=== PATIENT | female | born 1985 | race American Indian/Alaskan Native ===

== ENCOUNTER 2017-09-25 12:34 | Emergency (ER) | payer BC, OTHER ==
[2017-09-25] MEDS ORDERED: REGLAN IV ONE (13:32)
[2017-09-25] MEDS ORDERED: TYLENOL PO ONE (13:32)
[2017-09-25] MEDS ORDERED: APRESOLINE IV ONE (13:32)
[2017-09-25] MEDS ORDERED: TORADOL IV ONE (13:32)
[2017-09-25] MEDS ORDERED: BENADRYL IV ONE (13:33)
[2017-09-25 14:10] LABS: Bilirubin,Urine NEG (Negative); Blood,Urine NEG (Negative); Color,Urine Yellow (Yellow); Protein,Urine <15 mg/dL mg/dL (Negative); RBC,Urine < 1.0 /HPF (0.0-6.0); Urobilinogen,Urine < 2.0 mg/dL (<2.0); WBC,Urine < 1.0 /HPF (0.0-6.0)
[2017-09-25] MEDS ORDERED: ATIVAN IV ONE (14:11)
[2017-09-25] MEDS ORDERED: NORMODYNE IV ONE (14:11)
[2017-09-25 14:15] LABS: HCG Qualitative,Urine Negative (Negative)
--- NOTE | 2017-09-25 14:20 | Emergency Department Report ---
Chief Complaint: Headache Stated Complaint: MIGRAINE Time Seen by Provider: 09/25/17 13:32 - HPI History of Present Illness: The patient is a 32-year-old female who presents for evaluation of headache. The patient reports left-sided headache for the past 2 hours, constant since onset, throbbing in quality, moderate to severe. She also reports nausea and one episode of nonbilious, nonbloody emesis. The patient denies fever, head injury, neck pain, neck stiffness, hearing changes, smell or taste changes, paresthesias, facial drooping, slurred speech, seizure-like activity, urine or bowel incontinence or retention, or other focal neurological deficit. - Exam Vital Signs: Vital Signs 09/25/17 09/25/17 09/25/17 12:44 13:19 13:27 Temperature 98.6 F Pulse Rate 63 71 Respiratory 18 18 18 Rate Blood Pressure 162/106 140/96 O2 Sat by Pulse 100 98 99 Oximetry 09/25/17 09/25/17 13:51 14:07 Temperature Pulse Rate 86 Respiratory 18 Rate Blood Pressure 140/96 149/109 O2 Sat by Pulse Oximetry MSE screening note: Focused history and physical exam performed. Due to findings the following was ordered: ED Disposition for MSE Condition: Stable Referrals: PRIMARY CARE, [Primary Care Provider] - 3-5 Days
--- NOTE | 2017-09-25 14:55 | Cat Scan Report ---
CT HEAD WITHOUT CONTRAST: HISTORY: Headache. TECHNIQUE: Sequential 2.5mm CT images. COMPARISON: none. FINDINGS: Cerebral Parenchyma: Within normal limits. Cerebellum: Within normal limits. Brainstem: Within normal limits. Ventricles: Normal. Sella: Normal. Extra-axial spaces: Normal. Basal Cisterns: Normal. Intracranial Hemorrhage: None. Midline Shift: None. Calvarium: Normal. Sinuses: Normal. Mastoid Air Cells: Normal. Visualized Orbits: Normal. IMPRESSION: Cranial CT scan within normal limits.
--- NOTE | 2017-09-25 17:46 | Emergency Department Report ---
ED Headache HPI - General Chief Complaint: Headache Stated Complaint: MIGRAINE Time Seen by Provider: 09/25/17 13:32 Source: patient, family, police, RN/MD, EMS, per diem interpreter, RN notes reviewed, EMS notes reviewed, correction records, old records, other - History of Present Illness Initial Comments: The patient is a 32-year-old female who presents for evaluation of headache. The patient reports left-sided headache for the past 2 hours, constant since onset, throbbing in quality, moderate to severe. She also reports nausea and one episode of nonbilious, nonbloody emesis. The patient denies fever, head injury, neck pain, neck stiffness, hearing changes, smell or taste changes, paresthesias, facial drooping, slurred speech, seizure-like activity, urine or bowel incontinence or retention, or other focal neurological deficit. Patient has has medical history of migraines. She currently is taking no medications has no known drug allergies. Timing/Duration: 4-6 hours Quality: severe Head Injury Location: frontal Recent Head Trauma: no recent headache/trauma Modifying Factors: improves with: exposure to light, other (speckled vision N feel) Associated Symptoms: nausea/vomiting, vision changes. denies: fatigue, facial pain, nasal congestion, seizures, stiff neck Allergies/Adverse Reactions: Allergies No Known Allergies Allergy (Unverified 07/09/13 03:33) Home Medications: Ambulatory Orders HYDROcodone/APAP 5-325 [Diana 5-325 mg TAB] 1 each PO Q6HR PRN #12 tablet Promethazine [Phenergan] 25 mg PO Q6H PRN #12 tablet 07/09/13 Ibuprofen 800 mg PO Q8H PRN #30 tablet 09/25/17 ED Review of Systems ROS: Stated complaint: MIGRAINE Other details as noted in HPI Constitutional: denies: chills, fever Eyes: vision change (speckled seen in her vision feel) ENT: denies: ear pain, throat pain Respiratory: denies: cough, shortness of breath, wheezing Cardiovascular: denies: chest pain, palpitations Endocrine: no symptoms reported Gastrointestinal: vomiting (times one). denies: abdominal pain, nausea, diarrhea Genitourinary: denies: urgency, dysuria, discharge Musculoskeletal: denies: back pain, joint swelling, arthralgia Skin: denies: rash, lesions Neurological: headache. denies: weakness, paresthesias Psychiatric: denies: anxiety, depression Hematological/Lymphatic: denies: easy bleeding, easy bruising ED Past Medical Hx - Past Medical History Hx Headaches / Migraines: Yes - Surgical History Past Surgical History?: No - Social History Smoking Status: Former Smoker Substance Use Type: Alcohol - Medications Home Medications: Home Medications Medication Instructions Recorded Confirmed Last Taken Type HYDROcodone/APAP 5-325 [Diana 1 each PO Q6HR PRN #12 tablet 07/09/13 Unknown Rx 5-325 mg TAB] Promethazine [Phenergan] 25 mg PO Q6H PRN #12 tablet 07/09/13 Unknown Rx Ibuprofen 800 mg PO Q8H PRN #30 tablet 09/25/17 Unknown Rx ED Physical Exam - General Limitations: No Limitations General appearance: alert, in no apparent distress - Head Head exam: Present: atraumatic, normocephalic - Eye Eye exam: Present: normal appearance - ENT ENT exam: Present: mucous membranes moist - Neck Neck exam: Present: normal inspection - Respiratory Respiratory exam: Present: normal lung sounds bilaterally. Absent: respiratory distress - Cardiovascular Cardiovascular Exam: Present: regular rate, normal rhythm. Absent: systolic murmur, diastolic murmur, rubs, gallop - GI/Abdominal GI/Abdominal exam: Present: soft, normal bowel sounds - Extremities Exam Extremities exam: Present: normal inspection - Back Exam Back exam: Present: normal inspection - Neurological Exam Neurological exam: Present: alert, oriented X3 - Expanded Neurological Exam Expanded Cranial nerves: EOM's Intact: Normal, Gag Reflex: Normal, Tongue Deviation: Normal, Nystagmus: Normal Cerebellar function: Finger to Nose: Normal, Heel to Hernández: Normal, Romberg: Normal Upper motor neuron: Asher Neglect: Normal, Pronator Drift: Normal Motor strength exam: RUE: 4, LUE: 4, RLE: 4, LLE: 4 Best Eye Response (Vinicio): (4) open spontaneously Best Motor Response (Vinicio): (6) obeys commands Best Verbal Response (Vinicio): (5) oriented Vinicio Total: 15 - Psychiatric Psychiatric exam: Present: normal affect, normal mood - Skin Skin exam: Present: warm, dry, intact, normal color. Absent: rash ED Course Vital Signs 09/25/17 09/25/17 09/25/17 12:44 13:19 13:27 Temperature 98.6 F Pulse Rate 63 71 Respiratory 18 18 18 Rate Blood Pressure 162/106 140/96 O2 Sat by Pulse 100 98 99 Oximetry 09/25/17 09/25/17 09/25/17 13:51 14:07 14:27 Temperature Pulse Rate 86 Respiratory 18 Rate Blood Pressure 140/96 149/109 150/84 O2 Sat by Pulse Oximetry 09/25/17 09/25/17 15:18 15:20 Temperature Pulse Rate 86 Respiratory Rate Blood Pressure 150/84 133/77 O2 Sat by Pulse Oximetry ED Medical Decision Making - Radiology Data CT within normal limits - Medical Decision Making Patient has been evaluated by this provider as well as Dr. Patel. Patient reports that she feels much better after having pain medication here. She reports that her vision has complete improved. Critical care attestation.: If time is entered above; I have spent that time in minutes in the direct care of this critically ill patient, excluding procedure time. ED Disposition Clinical Impression: Migraine aura, persistent, intractable Disposition: -01 TO HOME OR SELFCARE Is pt being admited?: No Does the pt Need Aspirin: No Condition: Stable Instructions: Migraine Headache (ED) Additional Instructions: You can take ibuprofen as needed for headaches. Follow-up with the primary care provider. Prescriptions: Ibuprofen 800 mg PO Q8H PRN #30 tablet PRN Reason: Pain Referrals: PRIMARY CARE, [Primary Care Provider] - 3-5 Days SALOME IRBY MD [Staff Physician] - 3-5 Days JACK RICHARD JR, MD [Staff Physician] - 3-5 Days Forms: Work/School Release Form(ED)
[2017-09-25 18:18] VITALS: BP 140/86
== END 2017-09-25 18:17 | disposition home or self-care (01) ==
LOC: ED 12:34
DX: G43.519 Persistent migraine aura without cerebral infarction, intractable, without status migrainosus (principal); Z87.891 Personal history of nicotine dependence
CPT/HCPCS: 70450; 81001; 81025; 96374; 96375; 99284; J0360; J1200; J2060; J2765

== ENCOUNTER 2018-07-15 15:28 | Emergency (ER) | payer BC, MEDICAID ==
--- NOTE | 2018-07-15 16:56 | Emergency Department Report ---
<DAYA PITT - Last Filed: 07/15/18 20:49> ED Abdominal Pain HPI - General Chief Complaint: Abdominal Pain Stated Complaint: STOMACH/BACK AND BUTT PAIN - Related Data Previous Rx's Medication Instructions Recorded Last Taken Type HYDROcodone/APAP 5-325 [Hayward 1 each PO Q6HR PRN #12 tablet 07/09/13 Unknown Rx 5-325 mg TAB] Promethazine [Phenergan] 25 mg PO Q6H PRN #12 tablet 07/09/13 Unknown Rx Ibuprofen 800 mg PO Q8H PRN #30 tablet 09/25/17 Unknown Rx Oxycodone HCl/Acetaminophen 1 each PO Q6HR PRN #12 tablet 07/15/18 Unknown Rx [Percocet 7.5/325 mg] metroNIDAZOLE [Metronidazole] 500 mg PO Q8H #21 tablet 07/15/18 Unknown Rx Allergies Allergy/AdvReac Type Severity Reaction Status Date / Time No Known Allergies Allergy Unverified 07/09/13 03:33 ED Past Medical Hx - Medications Home Medications: Home Medications Medication Instructions Recorded Confirmed Last Taken Type HYDROcodone/APAP 5-325 [[place]ward 1 each PO Q6HR PRN #12 tablet 07/09/13 Unknown Rx 5-325 mg TAB] Promethazine [Phenergan] 25 mg PO Q6H PRN #12 tablet 07/09/13 Unknown Rx Ibuprofen 800 mg PO Q8H PRN #30 tablet 09/25/17 Unknown Rx Oxycodone HCl/Acetaminophen 1 each PO Q6HR PRN #12 tablet 07/15/18 Unknown Rx [Percocet 7.5/325 mg] metroNIDAZOLE [Metronidazole] 500 mg PO Q8H #21 tablet 07/15/18 Unknown Rx ED Physical Exam - Head Head exam: Present: atraumatic, normocephalic - ENT ENT exam: Present: mucous membranes moist - External exam: Present: normal external exam. Absent: erythema, swelling Speculum exam: Present: normal speculum exam. Absent: erythema, vaginal discharge, cervical discharge, vaginal bleeding Bi-manual exam: Present: uterine enlargement, uterine tenderness. Absent: cervical motion tendernes, adnexal tenderness, adnexal mass - Extremities Exam Extremities exam: Present: normal inspection, full ROM - Back Exam Back exam: Present: full ROM ED Medical Decision Making - Medical Decision Making Patient has been evaluated by this provider in fast track. exam done by this provider. Cultures have been obtained and sent to lab. Patient reports that she is still in pain. Spoke to [facility] [employer] for [facility]. She recommends to give her spontaneous miscarriage precautions. She is okay with discharging patient with Tylenol No. 3 or Percocets. She wants patient to follow-up in her office on Sunday. ED Disposition Clinical Impression: Threatened miscarriage in early , Bacterial vaginosis Disposition: TO HOME OR SELFCARE Is pt being admited?: No Does the pt Need Aspirin: No Condition: Stable Instructions: Threatened Miscarriage (ED), Bacterial Vaginosis (ED), Abdominal Pain (ED) Additional Instructions: Please take pain medication as needed. Please be aware that she may have increase abdominal cramping and vaginal bleeding. A few started having vaginal bleeding and saturating a pad an hour he needs to return back to the emergency room for evaluation. Is very important for you to follow up with hydraulic mechanic on Sunday I have listed information below for your convenience. Please do not operate heavy machinery while taking pain medication. Prescriptions: metroNIDAZOLE [Metronidazole] 500 mg PO Q8H #21 tablet Oxycodone HCl/Acetaminophen [Percocet 7.5/325 mg] 1 each PO Q6HR PRN #12 tablet PRN Reason: Pain Referrals: PRIMARY CARE, [Primary Care Provider] - 3-5 Days BECK GREGORIO MD [Staff Physician] - 3-5 Days [facility] [Provider Group] - 3-5 Days Forms: Accompanied Note, STI Treatment and Prevention, Work/School Release Form(ED) <YONATHAN VIRK - Last Filed: 07/16/18 21:07> ED Abdominal Pain HPI - General Source: patient Mode of arrival: Ambulatory Limitations: No Limitations - History of Present Illness Initial Comments: This is a 33-year-old female who presents with abdominal pain for 2 days. Patient reports she is 5 weeks . Last menstrual period was 05/11/2018, A1. Patient states she was seen at [facility] on [address] and a confirmed and was told she was 5 weeks . They also stated a 5 day gestational sac but it was a early . She reports abdominal pain radiating to the back down to but. Patient reports pain is 10 out of 10 all pain constant sharp radiating pain. She has currently taking cast aches and magnesium slightly 1 no improvement of symptoms. She also reports vaginal discharge and frequency. She denies vaginal bleeding, chest pain, shortness of breath, or dysuria. MD Complaint: abdominal pain Onset/Timin -: days(s) Location: diffuse Radiation: back Migration to: no migration Severity: mild Severity scale (0 -10): 10 Quality: sharp Consistency: constant Improves With: nothing Worsens With: nothing Associated Symptoms: denies other symptoms Treatments Prior to Arrival: NSAIDs - Related Data LMP Date: 05/11/18 LMP (females 10-50): ED Review of Systems ROS: Stated complaint: STOMACH/BACK AND BUTT PAIN Other details as noted in HPI Constitutional: denies: chills, fever Respiratory: denies: cough, shortness of breath, wheezing Cardiovascular: denies: chest pain, palpitations Gastrointestinal: abdominal pain. denies: nausea, diarrhea Genitourinary: frequency, discharge. denies: urgency, dysuria Musculoskeletal: denies: back pain, joint swelling, arthralgia Neurological: denies: headache, weakness, paresthesias Psychiatric: denies: anxiety, depression ED Past Medical Hx - Past Medical History Previous Medical History?: Yes Hx Hypertension: Yes Hx Headaches / Migraines: Yes - Surgical History Past Surgical History?: No - Social History Smoking Status: Former Smoker Substance Use Type: None ED Physical Exam - General Limitations: No Limitations General appearance: alert, in no apparent distress - Respiratory Respiratory exam: Present: normal lung sounds bilaterally. Absent: respiratory distress - Cardiovascular Cardiovascular Exam: Present: regular rate, normal rhythm. Absent: systolic murmur, diastolic murmur, rubs, gallop - GI/Abdominal GI/Abdominal exam: Present: soft, tenderness (left lower quadrant tenderness), normal bowel sounds. Absent: distended, guarding, rebound, rigid, organomegaly, mass - Back Exam Back exam: Absent: CVA tenderness (R), CVA tenderness (L) - Neurological Exam Neurological exam: Present: alert, oriented X3 - Psychiatric Psychiatric exam: Present: normal affect, normal mood - Skin Skin exam: Present: warm, dry, intact, normal color. Absent: rash ED Course Vital Signs 1207/15/18 07/15/18 15:49 18:16 20:01 Temperature 98.4 F Pulse Rate 94 H Respiratory 20 18 18 Rate Blood Pressure 149/84 Blood Pressure [Right] O2 Sat by Pulse 98 Oximetry 07/15/18 20:45 Temperature Pulse Rate 90 Respiratory 18 Rate Blood Pressure Blood Pressure 146/82 [Right] O2 Sat by Pulse 100 Oximetry ED Medical Decision Making - Lab Data Lab Results 07/15/18 07/15/18 Range/Units 17:10 17:25 HCG, Quant 4702 H (0-4) mIU/mL Urine Color Straw (Yellow) Urine Turbidity Clear (Clear) Urine pH 8.0 H (5.0-7.0) Ur Specific George 1.004 (1.003-1.030) Urine Protein <15 mg/dl (Negative) mg/dL Urine Glucose (UA) Neg (Negative) mg/dL Urine Ketones Neg (Negative) mg/dL Urine Blood Mod (Negative) Urine Nitrite Neg (Negative) Urine Bilirubin Neg (Negative) Urine Urobilinogen < 2.0 (<2.0) mg/dL Ur Leukocyte Esterase Neg (Negative) Urine WBC (Auto) 1.0 (0.0-6.0) /HPF Urine RBC (Auto) 2.0 (0.0-6.0) /HPF U Epithel Cells (Auto) 2.0 (0-13.0) /HPF Urine Bacteria (Auto) 1+ (Negative) /HPF Urine HCG, Qual Positive A (Negative) - Radiology Data FINAL REPORT EXAM: US OB TRANSVAGINAL HISTORY: LLQ tenderness, 5 weeks gest TECHNIQUE: Transvaginal grayscale and color-flow imaging of the pelvis was performed. Comparison: Transvaginal study also performed today FINDINGS: The cervix is closed and unremarkable in appearance. There is a hypoechoic region in the endometrium which may represent an intrauterine gestational sac. There is no definite demonstration of a pole or yolk sac. The ovaries are not visualized. No free fluid is demonstrated in the pelvis. IMPRESSION: 1. Hypoechoic region in the endometrium which may represent an intrauterine gestational sac. There is no definite evidence of a pole or yolk sac at this time. In the absence of demonstration of a definite intrauterine gestation, an ectopic gestation cannot be excluded. Short-term follow-up in correlation with beta HCG is recommended. 2. The ovaries are not visualized. - Medical Decision Making This is a 33 y.o. female presents with lower abdominal pain radiating to lower back during for 2 days. Patient was examined by me. Vitals are normal and patient is in slight distress. Given Tylenol No. 3 one swollen ER. Obtained a urinalysis, hCG qual, hCG quant, and OB ultrasound. Positive test, Quant 4702, urinalysis moderate blood and elevated pH. OB ultrasound pending. Child will be signed out to Amor OLMEDO J. Critical care attestation.: If time is entered above; I have spent that time in minutes in the direct care of this critically ill patient, excluding procedure time.
[2018-07-15] MEDS ORDERED: TYLENOL #3 PO ONE ×2 (17:00→19:42)
[2018-07-15 17:36] LABS: Bacteria,Urine 1+ /HPF (Negative); Bilirubin,Urine NEG (Negative); Blood,Urine MOD (Negative); Color,Urine Straw (Yellow); Protein,Urine <15 mg/dL mg/dL (Negative); Urobilinogen,Urine < 2.0 mg/dL (<2.0)
[2018-07-15 17:37] LABS: HCG Qualitative,Urine Positive (Negative)
--- NOTE | 2018-07-15 20:03 | Ultrasound Report ---
FINAL REPORT EXAM: US OB <= 14 WEEKS FETUS HISTORY: LLQ tenderness, 5 weeks gest last menstrual. May 11, 2018. Estimated gestational age by dates is 9 weeks 2 days. Beta HCG is 4702 which is equivalent to a 5-6 weeks gestation. TECHNIQUE: Transabdominal grayscale and color-flow imaging of the pelvis was performed. Comparison: Transvaginal study also performed today FINDINGS: The uterus measures 12.8 centimeters x 6.2 centimeters x 12.3 centimeters and is fibroid in appearanc e. No intrauterine gestational sac is demonstrated on the transabdominal study. The ovaries are not visualized. No free fluid is demonstrated in the pelvis. IMPRESSION: 1. Fibroid appearance of the uterus. 2. No demonstration of an intrauterine gestation on the transabdominal study. 3. The ovaries are not visualized. Please see report of transvaginal pelvic ultrasound also performed today.
--- NOTE | 2018-07-15 20:05 | Ultrasound Report ---
FINAL REPORT EXAM: US OB TRANSVAGINAL HISTORY: LLQ tenderness, 5 weeks gest TECHNIQUE: Transvaginal grayscale and color-flow imaging of the pelvis was performed. Comparison: Transvaginal study also performed today FINDINGS: The cervix is closed and unremarkable in appearance. There is a hypoechoic region in the endometrium which may represent an intrauterine gestational sac. There is no definite demonstration of a pole or yolk sac. The ovaries are not visualized. No free fluid is demonstrated in the pelvis. IMPRESSION: 1. Hypoechoic region in the endometrium which may represent an intrauterine gestational sac. There is no definite evidence of a pole or yolk sac at this time. In the absence of demonstration of a definite intrauterine gestation, an ectopic gestation cannot be excluded. Short-term follow-up in correlation with beta HCG is recommended. 2. The ovaries are not visualized.
[2018-07-15 20:51] VITALS: BP 146/82
== END 2018-07-15 21:16 | disposition home or self-care (01) ==
LOC: ED 15:28
DX: O20.0 Threatened abortion (principal); O23.591 Infection of other part of genital tract in pregnancy, first trimester; Z3A.01 Less than 8 weeks gestation of pregnancy
CPT/HCPCS: 36415; 76801; 76817; 81001; 81025; 84702; 87210; 87591

== ENCOUNTER 2018-07-23 11:21 | Emergency (ER) | payer MEDICAID ==
--- NOTE | 2018-07-23 12:17 | Emergency Department Report ---
ED Abdominal Pain HPI - General Chief Complaint: Vaginal Bleeding Stated Complaint: 5WKS/BLEEDING/PAIN Time Seen by Provider: 07/23/18 12:16 Source: patient Mode of arrival: Ambulatory Limitations: No Limitations - History of Present Illness Initial Comments: 33 YO AA FEMALE TO ER IN FOLLOW UP FOR VAG BLEED IN PREG LMP 10-27 [id number] SAW OB AND QUANT WAS 3300 - Related Data Previous Rx's Medication Instructions Recorded Last Taken Type traMADol [Ultram] 50 mg PO Q6HR PRN #12 tablet 07/23/18 Unknown Rx Allergies Allergy/AdvReac Type Severity Reaction Status Date / Time No Known Allergies Allergy Unverified 07/09/13 03:33 ED Review of Systems ROS: Stated complaint: 5WKS/BLEEDING/PAIN Other details as noted in HPI Comment: All other systems reviewed and negative Constitutional: denies: chills Eyes: denies: eye pain ENT: denies: ear pain Respiratory: denies: cough Cardiovascular: denies: orthopnea Endocrine: denies: intolerance to cold Gastrointestinal: denies: nausea Genitourinary: as per HPI, other (VAG BLEEDING IN PREG) Musculoskeletal: denies: back pain Skin: denies: rash Neurological: denies: headache Psychiatric: denies: anxiety Hematological/Lymphatic: denies: easy bleeding ED Past Medical Hx - Past Medical History Previous Medical History?: Yes Hx Hypertension: Yes Hx Headaches / Migraines: Yes - Surgical History Past Surgical History?: Yes - Social History Smoking Status: Former Smoker Substance Use Type: None - Medications Home Medications: Home Medications Medication Instructions Recorded Confirmed Last Taken Type traMADol [Ultram] 50 mg PO Q6HR PRN #12 tablet 07/23/18 Unknown Rx ED Physical Exam - General Limitations: No Limitations General appearance: alert - Head Head exam: Present: atraumatic, normocephalic - Eye Eye exam: Present: normal appearance Pupils: Present: normal accommodation - ENT ENT exam: Present: normal exam - Neck Neck exam: Present: normal inspection - Respiratory Respiratory exam: Present: normal lung sounds bilaterally - Cardiovascular Cardiovascular Exam: Present: regular rate - GI/Abdominal GI/Abdominal exam: Present: soft, normal bowel sounds, other (OS CLOSED). Absent: tenderness - Rectal Rectal exam: Present: deferred - Extremities Exam Extremities exam: Present: normal inspection, full ROM - Back Exam Back exam: Present: normal inspection, full ROM - Neurological Exam Neurological exam: Present: alert, oriented X3 - Psychiatric Psychiatric exam: Present: normal affect, normal mood - Skin Skin exam: Present: warm, dry ED Course Vital Signs 07/23/18 07/23/18 11:24 16:40 Temperature 98.5 F 98.5 F Pulse Rate 90 67 Respiratory 18 16 Rate Blood Pressure 120/65 Blood Pressure 115/71 [Right] O2 Sat by Pulse 100 100 Oximetry ED Medical Decision Making - Lab Data Result diagrams: 07/23/18 12:28 07/23/18 12:28 - Radiology Data Radiology results: report reviewed, image reviewed - Medical Decision Making THREATENED AB DECREASING HCG US NOTED DISCUSSED W PT AND SHE WILL FOLLOW UP WITH OBGYN BLOOD TYPE POS- NO RHOGAM NEEDED BLEEDING LIGHT WITH NO ANEMIA VSS DC HOME W DC POC Labs 07/23/18 07/23/18 07/23/18 11:40 12:28 12:28 WBC 6.2 RBC 3.75 Hgb 12.8 Hct 37.2 MCV 99 H MCH 34 H MCHC 34 RDW 13.1 L Plt Count 371 Sodium 137 Potassium 4.4 Chloride 99.7 Carbon Dioxide 24 Anion Gap 18 BUN 10 Creatinine 0.6 L Estimated GFR > 60 BUN/Creatinine Ratio 17 Glucose 73 Calcium 9.5 HCG, Quant Urine Color Dana Urine Turbidity Turbid Urine pH 5.0 Ur Specific [place] 1.023 Urine Protein 100 mg/dl Urine Glucose (UA) 50 Urine Ketones Neg Urine Blood Lg Urine Nitrite Neg Ur Reducing Substances Not Reportable Urine Bilirubin Neg Urine Ictotest Not Reportable Urine Urobilinogen < 2.0 Ur Leukocyte Esterase Mod Urine WBC (Auto) 114.0 H Urine RBC (Auto) > 182.0 U Epithel Cells (Auto) 29.0 H Urine Bacteria (Auto) 2+ Urine Mucus Few Urine HCG, Qual Positive A Blood Type 07/23/18 07/23/18 12:28 12:28 WBC RBC Hgb Hct MCV MCH MCHC RDW Plt Count Sodium Potassium Chloride Carbon Dioxide Anion Gap BUN Creatinine Estimated GFR BUN/Creatinine Ratio Glucose Calcium HCG, Quant 2029 H Urine Color Urine Turbidity Urine pH Ur Specific [place] Urine Protein Urine Glucose (UA) Urine Ketones Urine Blood Urine Nitrite Ur Reducing Substances Urine Bilirubin Urine Ictotest Urine Urobilinogen Ur Leukocyte Esterase Urine WBC (Auto) Urine RBC (Auto) U Epithel Cells (Auto) Urine Bacteria (Auto) Urine Mucus Urine HCG, Qual Blood Type A POSITIVE - Differential Diagnosis RO AB Critical care attestation.: If time is entered above; I have spent that time in minutes in the direct care of this critically ill patient, excluding procedure time. ED Disposition Clinical Impression: Threatened miscarriage in early , Vaginitis, Fibroid Disposition: TO HOME OR SELFCARE Is pt being admited?: No Does the pt Need Aspirin: No Condition: Stable Instructions: Threatened Miscarriage (ED) Additional Instructions: PELVIC REST FOLLOW UP WITH OBGYN- YOU NEED TO BE SEEN TO BE SURE YOU HAVE COMPLETED THIS MISCARRIAGE. THIS IS NOT WHAT IS DONE IN THE ER. IT REQUIRES A SPECIALIST. YOUR BLOOD TYPE IS RH POSITIVE YOUR BETA HCG IS 2028 HYDRATE WELL WITH WATER SAFE SEX MOTRIN OR TYLENOL FOR MILD PAIN EAT YOGURT EVERY DAY DUE TO THE ANTIBIOTICS THAT YOU GOT TODAY Prescriptions: traMADol [Ultram] 50 mg PO Q6HR PRN #12 tablet PRN Reason: Pain Referrals: PRIMARY CAREMD [Primary Care Provider] - 3-5 Days BERLIN KHANNA MD [Staff Physician] - 3-5 Days HENRIQUE KIMBLE [Staff Physician] - 3-5 Days Time of Disposition: 16:05
[2018-07-23 12:50] LABS: Hematocrit 37.2 % (30.3-42.9); Hemoglobin 12.8 gm/dl (10.1-14.3); Mean Corpuscular HGB Conc 34 % (30-34); Mean Corpuscular Volume 99 fl (79-97); Platelet Count 371 K/mm3 (140-440); Red Blood Count 3.75 M/mm3 (3.65-5.03); Red Cell Distribution Width 13.1 % (13.2-15.2)
[2018-07-23 12:59] LABS: BUN/Creatinine Ratio 17; Blood Urea Nitrogen 10 mg/dL (7-17); Calcium 9.5 mg/dL (8.4-10.2); Hemolysis Index 12
[2018-07-23 13:33] LABS: HCG Qualitative,Urine Positive (Negative)
[2018-07-23 13:37] LABS: Bacteria,Urine 2+ /HPF (Negative); Bilirubin,Urine NEG (Negative); Blood,Urine LG (Negative); Mucus,Urine FEW /HPF; Urobilinogen,Urine < 2.0 mg/dL (<2.0)
[2018-07-23 13:41] LABS: Color,Urine Amber (Yellow); RBC,Urine > 182.0 /HPF (0.0-6.0)
--- NOTE | 2018-07-23 15:15 | Ultrasound Report ---
FINAL REPORT EXAM: US OB TRANSVAGINAL HISTORY: VAG BLEED IN PREG , patient , quantitative beta HCG is 4702 07/15/2018, and 202807/23/19 19 TECHNIQUE: Ultrasound evaluation of the pelvis using TRANSVAGINAL technique PRIORS: 07/15/2018 and transabdominal pelvic ultrasound 07/23/2018 FINDINGS: Enlarged uterus measures 14.7 x 6.0 x 11.8 cm. Multiple heterogeneous isoechoic or hypoechoic nodule s are suggestive of fibroids. Largest visualized with transabdominal technique is 9.3 cm in the right lateral uterus. There is nonspecific complex fluid collection in the endometrial cavity resulting in endometrial thic kening of 18 mm. No ultrasound evidence of intrauterine . Gestational sac seen on prior exam is no longer visualized on this exam. No cul-de-sac free fluid. Normal-appearing right ovary measuring 3.4 x 1.8 x 3.6 cm. Left ovary not v isualized, possibly obscured by intestinal gas. IMPRESSION: No ultrasound evidence of intrauterine or extrauterine . There is nonspecific complex fluid collection in the endometrial cavity where gestational sac is no longer visualized Multiple uterine nodules and masses suggestive of fibroids
[2018-07-23] MEDS ORDERED: NORCO 5/325 PO ONE (16:04)
[2018-07-23] MEDS ORDERED: ZITHROMAX PO ONE (16:04)
[2018-07-23] MEDS ORDERED: XYLOCAINE 1% MPF 5 mL INFILTRATI ONE (16:05)
[2018-07-23] MEDS ORDERED: ROCEPHIN IM ONE (16:05)
[2018-07-23 17:00] VITALS: BP 115/71
--- NOTE | 2018-07-26 07:46 | Ultrasound Report ---
FINAL REPORT PROCEDURE: US OB <= 14 WEEKS FETUS TECHNIQUE: Real-time transabdominal sonography of the uterus, placenta, amniotic fluid, adnexa, and fetus was performed with image documentation. Measurements were obtained to determine age/size. M-mode Doppler was used to document heartbeat. CPT 58561 HISTORY: VAG BLEED IN PREG COMPARISON: 07/15/2018 FINDINGS: The uterus measures 14.7 by 6 x 11.8 centimeters. The endometrium measures 18 millimeters. There is n o evidence of intrauterine . There are multiple uterine fibroids measuring up to 9.3 centime ters. The right ovary measures 3.4 x 1.8 x 3.6 centimeters. There is no mass. Left ovary is not seen. There is no free pelvic fluid. IMPRESSION: There is no evidence of intrauterine . There are multiple uterine fibroids measuring up to 9.3 centimeters. Unremarkable right ovary. Left ovary is not seen. There is no free pelvic fluid
== END 2018-07-23 17:06 | disposition home or self-care (01) ==
LOC: ED 11:21
DX: O20.0 Threatened abortion (principal); O23.591 Infection of other part of genital tract in pregnancy, first trimester; D21.9 Benign neoplasm of connective and other soft tissue, unspecified; Z3A.01 Less than 8 weeks gestation of pregnancy
CPT/HCPCS: 36415; 76801; 76817; 80048; 81001; 81025; 84702; 85027; 86900; 86901; 96372; 99284; J0696

== ENCOUNTER 2018-07-23 21:44 | Emergency (ER) | payer MEDICAID ==
[2018-07-23] MEDS ORDERED: NACL 0.9% 1000 ML 1,000 ML IV ONE (21:59)
[2018-07-23] MEDS ORDERED: MORPHINE IV ONE (21:59)
[2018-07-23] MEDS ORDERED: ZOFRAN IV ONE (21:59)
--- NOTE | 2018-07-23 22:02 | Emergency Department Report ---
ED General Adult HPI - General Chief complaint: Abdominal Pain Stated complaint: ABDOMINAL PAIN Time Seen by Provider: 07/23/18 21:54 Source: patient, EMS Mode of arrival: Stretcher Limitations: No Limitations - History of Present Illness Initial comments: Patient is 33 years old female 2 para 0 with one . Patient approximately 5 weeks . Patient presented to the ER today for vaginal bleeding. Patient found to have threatened miscarriage by ultrasound. Patient was sent home to follow up with her OB doctor the patient returned back to the ER stating that her pain is getting worse. Patient denied any dizziness, shortness of breath or chest pain. Patient denied any excessive vaginal bleeding. Severity scale (0 -10): 10 - Related Data Previous Rx's Medication Instructions Recorded Last Taken Type traMADol [Ultram] 50 mg PO Q6HR PRN #12 tablet 07/23/18 Unknown Rx Allergies Allergy/AdvReac Type Severity Reaction Status Date / Time No Known Allergies Allergy Unverified 07/09/13 03:33 ED Review of Systems ROS: Stated complaint: ABDOMINAL PAIN Other details as noted in HPI Comment: All other systems reviewed and negative Constitutional: denies: chills, fever Respiratory: denies: cough, orthopnea, shortness of breath, SOB with exertion, SOB at rest, wheezing Cardiovascular: denies: chest pain, palpitations, dyspnea on exertion Gastrointestinal: abdominal pain. denies: nausea, vomiting Genitourinary: denies: urgency, frequency, hematuria, discharge Musculoskeletal: denies: back pain Neurological: denies: headache, weakness, numbness, paresthesias, confusion, abnormal gait ED Past Medical Hx - Past Medical History Previous Medical History?: Yes Hx Hypertension: Yes Hx Headaches / Migraines: Yes - Surgical History Past Surgical History?: Yes - Social History Smoking Status: Current Every Day Smoker Substance Use Type: Marijuana - Medications Home Medications: Home Medications Medication Instructions Recorded Confirmed Last Taken Type traMADol [Ultram] 50 mg PO Q6HR PRN #12 tablet 07/23/18 Unknown Rx ED Physical Exam - General Limitations: No Limitations General appearance: alert, in distress (due to pain) - Head Head exam: Present: atraumatic, normocephalic, normal inspection - Eye Eye exam: Present: normal appearance - ENT ENT exam: Present: normal exam, normal orophraynx, mucous membranes moist - Neck Neck exam: Present: normal inspection, full ROM. Absent: tenderness, meningismus, lymphadenopathy, thyromegaly - Respiratory Respiratory exam: Present: normal lung sounds bilaterally - Cardiovascular Cardiovascular Exam: Present: regular rate, normal rhythm, normal heart sounds - GI/Abdominal GI/Abdominal exam: Present: soft, normal bowel sounds. Absent: distended, tenderness, guarding, rebound, rigid, organomegaly, mass, bruit, pulsatile mass, hernia - Extremities Exam Extremities exam: Present: normal inspection, full ROM, normal capillary refill. Absent: pedal edema, calf tenderness - Back Exam Back exam: Present: normal inspection, full ROM. Absent: tenderness, CVA tenderness (R), CVA tenderness (L), muscle spasm, paraspinal tenderness, vertebral tenderness - Neurological Exam Neurological exam: Present: alert, oriented X3, CN II-XII intact, normal gait, reflexes normal - Skin Skin exam: Present: warm, intact, normal color ED Course Vital Signs 07/23/18 21:45 Temperature 97.4 F L Pulse Rate 69 Respiratory 15 Rate Blood Pressure 116/65 Blood Pressure 116/65 [Left] O2 Sat by Pulse 100 Oximetry ED Medical Decision Making - Medical Decision Making Patient is 33 years old female 2 para 0 with one . Patient approximately 5 weeks . Patient presented to the ER today for vaginal bleeding. Patient found to have threatened miscarriage by ultrasound. Patient was sent home to follow up with her OB doctor the patient returned back to the ER stating that her pain is getting worse. Patient denied any dizziness, shortness of breath or chest pain. Patient denied any excessive vaginal bleeding. Patient stated that her symptoms status completely resolved. Patient symptoms is most likely needed to take Zithromax on an empty stomach. I advised the patient to follow-up with primary care physician in the next 2-3 days to entertain to the ER if her symptoms returned. Critical care attestation.: If time is entered above; I have spent that time in minutes in the direct care of this critically ill patient, excluding procedure time. ED Disposition Clinical Impression: Abdominal pain Disposition: DC-01 TO HOME OR SELFCARE Is pt being admited?: No Condition: Stable Instructions: Abdominal Pain (ED) Referrals: PRIMARY CARE, [Referring] - 3-5 Days
[2018-07-23] MEDS ORDERED: LIDOCAINE VISCOUS 2% PO ONE (22:52)
[2018-07-23] MEDS ORDERED: ALUM-MAG HYDROX-SIMETH 200-200-20MG/5ML PO ONE (22:52)
[2018-07-24 01:41] VITALS: BP 116/65
== END 2018-07-24 00:05 | disposition home or self-care (01) ==
LOC: ED 21:44
DX: O20.0 Threatened abortion (principal); I10 Essential (primary) hypertension; G43.909 Migraine, unspecified, not intractable, without status migrainosus; F17.200 Nicotine dependence, unspecified, uncomplicated; F12.10 Cannabis abuse, uncomplicated; Z3A.01 Less than 8 weeks gestation of pregnancy
CPT/HCPCS: 96374; 96375; 99283; J2270; J2405; J7030; 36415; 76801; 76817; 80048; 81001; 81025; 84702; 85027; 86900; 86901; 96372; J0696